=== PATIENT | male | born 1960 | race Caucasian/White ===

== ENCOUNTER 2016-11-23 08:08 | Day surgery (SDC) | payer OTHER ==
[2016-11-23 09:34] LABS: PARTIAL THROMBOPLASTIN TIME 28.2 SEC (23.5-35.8)
[2016-11-23] MEDS ORDERED: LIDOCAINE 1% INJ-PF (10 MG/ML) 30 ML SDV ONE (09:48)
[2016-11-23 13:05] VITALS: BP 125/91
== END 2016-11-23 13:05 | disposition home or self-care (01) ==
LOC: RAD 08:08
PROVIDERS: ATTEND Physician Assistant
PROC: B01BYZZ Fluoroscopy of Spinal Cord using Other Contrast (ICD-10-PCS; principal; 2016-11-23)
DX: M54.16 Radiculopathy, lumbar region (principal); I10 Essential (primary) hypertension; Z86.711 Personal history of pulmonary embolism
CPT/HCPCS: 36415; 85610; 85730; 72265; 72132; J3490

== ENCOUNTER → 2017-05-19 | Outpatient (CLI) | payer OTHER ==
--- NOTE | 2017-05-19 10:36 | RADIOLOGY REPORT (SQ) ---
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 Coronal T2/ HASTE imaging. LIMITATIONS: None. FINDINGS: VISUALIZED UPPER ABDOMEN: Larger right renal cysts. SEGMENTATION: No transitional anatomy. The lowest well-developed disc space is labeled L5-S1. ALIGNMENT: Mild retrolisthesis L 2 on L3. VERTEBRAE: Intact. BONE MARROW: Mild reactive endplate changes L2-3. DISC SIGNAL: Normal. No significant abnormal signal or loss of height. POSTERIOR ELEMENTS: Right laminectomy L5-S1. HARDWARE: Disc prostheses L3-4, L4-5, L5-S1. Associated pedicle screws. CORD AND CONUS: Normal in size and signal intensity. Conus at the appropriate level. SOFT TISSUES: No aortic aneurysm seen. No bulky retroperitoneal adenopathy or mass. No paraspinal mas s or fluid. L1-L2: No significant spinal stenosis or exit foraminal stenosis. L2-L3: Generalized disc bulge. Ligamentous hypertrophy. Mild central canal stenosis. L3-L4: There is left paracentral focal protrusion at the level of the foramina of the tribe disc L3- 4. Compression of the exiting L3 root. L4-L5: No significant spinal stenosis or exit foraminal stenosis. L5-S1: No significant spinal stenosis or exit foraminal stenosis. LOWER THORACIC: Incompletely imaged. No stenosis seen. SACRUM: Visualized upper sacrum intact. OTHER: No other significant findings. IMPRESSION: Mild central canal stenosis L2-3. At L3-4 there appears to be a small left paracentral focal protrusion at the level of foramina result ing compression of the exiting L3 root. TECHNICAL DOCUMENTATION: JOB ID: [id number]- All Rights Reserved
== END ==
LOC: RAD 06:48
PROVIDERS: ATTEND Orthopaedic Surgery
DX: M51.26 Other intervertebral disc displacement, lumbar region (principal)
CPT/HCPCS: 72148

== ENCOUNTER 2017-12-08 19:32 | Emergency (ER) | payer OTHER ==
--- NOTE | 2017-12-08 20:35 | ER Document Report ---
ED Medical Screen (RME) - General Chief Complaint: Chest Tightness Stated Complaint: DIFFICULTY BREATHING/TIGHT CHEST Time Seen by Provider: 12/08/17 20:33 Notes: Patient recently had influenza. Starting yesterday he began to have shortness of breath and was unable to lie flat or fall asleep due to shortness of breath. He is also had chest tightness and been feeling very anxious. He states he had a similar feeling to this several years ago when he had 3 pulmonary embolisms. He states he did take one year of blood thinners and is currently on aspirin. TRAVEL OUTSIDE OF THE [place] IN LAST 30 DAYS: No - Related Data Allergies/Adverse Reactions: No Known Allergies Allergy (Unverified 11/23/16 08:46) Past Medical History - Past Medical History Cardiac Medical History: Reports: Hx Coronary Artery Disease - high cholesterol , Hx Hypertension Denies: Hx Heart Attack Pulmonary Medical History: Denies: Hx Asthma, Hx Bronchitis, Hx COPD, Hx Pneumonia Neurological Medical History: Denies: Hx Cerebrovascular Accident, Hx Seizures Renal/ Medical History: Denies: Hx Peritoneal Dialysis Musculoskeltal Medical History: Denies Hx Arthritis Past Surgical History: Reports: Hx Orthopedic Surgery - Spinal cord stimulator - Immunizations Hx Diphtheria, Pertussis, Tetanus Vaccination: Yes Physical Exam - Vital signs Vitals: Temp Pulse Resp BP Pulse Ox 98.5 F 69 12 125/69 95 12/08/17 19:48 12/08/17 19:48 12/08/17 19:48 12/08/17 19:48 12/08/17 19:48 Course - Vital Signs Vital signs: Temp Pulse Resp BP Pulse Ox 98.5 F 69 12 125/69 95 12/08/17 19:48 12/08/17 19:48 12/08/17 19:48 12/08/17 19:48 12/08/17 19:48
[2017-12-08 21:04] LABS: ABSOLUTE EOSINOPHILS # (AUTO) 0.2 10^3/uL (0.0-0.6); ABSOLUTE LYMPHOCYTES (AUTO) 1.9 10^3/uL (0.5-4.7); ABSOLUTE MONOCYTES (AUTO) 0.5 10^3/uL (0.1-1.4); ABSOLUTE NEUT (AUTO) 4.5 10^3/uL (1.7-8.2); BASOPHILS % (AUTO) 0.5 % (0-2); EOSINOPHILS % (AUTO) 2.7 % (0-6); HEMATOCRIT 37.9 % (37.9-51.0); HEMOGLOBIN 13.1 g/dL (13.5-17.0); LYMPHOCYTES % (AUTO) 27.1 % (13-45); MEAN CORPUSCULAR HEMOGLOBIN 29.6 pg (27.0-33.4); MEAN CORPUSCULAR HGB CONC 34.7 g/dL (32.0-36.0); MEAN CORPUSCULAR VOLUME 86 fl (80-97); MONOCYTES % (AUTO) 6.5 % (3-13); PLATELET COUNT 313 10^3/uL (150-450); RED BLOOD COUNT 4.43 10^6/uL (4.35-5.55); RED CELL DISTRIBUTION WIDTH 13.5 % (11.5-14.0); SEGMENTED NEUTROPHILS % (AUTO) 63.2 % (42-78); TOTAL CELLS COUNTED % (AUTO) 100 %; WHITE BLOOD COUNT 7.1 10^3/uL (4.0-10.5)
[2017-12-08 21:18] LABS: ALANINE AMINOTRANSFERASE 49 U/L (21-72); ALBUMIN 4.8 g/dL (3.5-5.0); ALKALINE PHOSPHATASE 67 U/L (38-126); ANION GAP 14 (5-19); ASPARTATE AMINO TRANSFERASE 33 U/L (17-59); BILIRUBIN,DIRECT 0.2 mg/dL (0.0-0.4); BILIRUBIN,TOTAL 0.3 mg/dL (0.2-1.3); BLOOD UREA NITROGEN 19 mg/dL (7-20); CALCIUM 10.6 mg/dL (8.4-10.2); CARBON DIOXIDE 28 mmol/L (22-30); CHLORIDE 100 mmol/L (98-107); GLUCOSE 109 mg/dL (75-110); POTASSIUM 4.2 mmol/L (3.6-5.0); SODIUM 142.3 mmol/L (137-145); TOTAL PROTEIN 7.2 g/dL (6.3-8.2)
--- NOTE | 2017-12-08 21:25 | ER Document Report ---
ED Respiratory Problem - General Chief Complaint: Chest Tightness Stated Complaint: DIFFICULTY BREATHING/TIGHT CHEST Time Seen by Provider: 12/08/17 20:33 Mode of Arrival: Ambulatory Information source: Patient TRAVEL OUTSIDE OF THE [place] IN LAST 30 DAYS: No - HPI Onset: Yesterday - EVENING Duration: Intermittent episodes Initiating Event: URI - FLU LAST WEEK. No: Exposure to chemicals, Exposure to dust, Exposure to fumes, Exposure to mold, Exposure to smoke, Out of meds, Sports/exercise Quality of pain: No pain Context: Recent immobilization - DECREASED ACTIVITY DURING FLU-LIKE ILLNESS.. denies: Recent cardiac event, Recent foreign travel, Recent long distance trvl Short of Breath: Moderate Sputum amount: None Associated symptoms: Headache, Leg/calf/joint pain - CHRONIC LEG PAIN, Short of breath. denies: Ankle/leg swelling, Chest pain/discomfort, Chills, Congestion, Cough, Fever, Wheezing Worsened by: ACTIVITY Similar symptoms previously: Yes - W/ P.E., 5 YRS AGO Recently seen / treated by doctor: Yes - PCP, LAST WEEK - Related Data Allergies/Adverse Reactions: No Known Allergies Allergy (Unverified 11/23/16 08:46) Past Medical History - General Information source: Patient - Social History Smoking Status: Never Smoker Cigarette use (# per day): No Chew tobacco use (# tins/day): No Frequency of alcohol use: Rare Drug Abuse: None Lives with: Spouse/Significant other Family History: Other - NEG. DVT/PE Patient has suicidal ideation: No Patient has homicidal ideation: No - Past Medical History Cardiac Medical History: Reports: Hx Hypercholesterolemia, Hx Hypertension, Hx Pulmonary Embolism Denies: Hx Heart Attack Pulmonary Medical History: Denies: Hx Asthma, Hx Bronchitis, Hx COPD, Hx Pneumonia Neurological Medical History: Denies: Hx Cerebrovascular Accident, Hx Seizures Endocrine Medical History: Reports: None Renal/ Medical History: Reports: None. Denies: Hx Peritoneal Dialysis Malignancy Medical History: Reports None GI Medical History: Reports: Hx Gastroesophageal Reflux Disease Musculoskeltal Medical History: Denies Hx Arthritis, Reports Other - CHRONIC LEG PAIN, SPINAL STENOSIS Psychiatric Medical History: Reports: None Past Surgical History: Reports: Hx Orthopedic Surgery - Spinal cord stimulator - Immunizations Hx Diphtheria, Pertussis, Tetanus Vaccination: Yes Review of Systems - Review of Systems Constitutional: Weakness EENT: No symptoms reported Cardiovascular: No symptoms reported Respiratory: See HPI Gastrointestinal: No symptoms reported Genitourinary: No symptoms reported Musculoskeletal: See HPI Skin: No symptoms reported Neurological/Psychological: No symptoms reported Physical Exam - Vital signs Vitals: Temp Pulse Resp BP Pulse Ox 98.5 F 69 12 125/69 95 12/08/17 19:48 12/08/17 19:48 12/08/17 19:48 12/08/17 19:48 12/08/17 19:48 Interpretation: Normal. No: Hypotensive, Tachycardic, Hypoxic, Tachypneic - General General appearance: Appears well, Alert In distress: None - HEENT Head: Normocephalic Eyes: Normal Conjunctiva: Normal Ears: Normal Nasal: Normal Mouth/Lips: Normal Mucous membranes: Normal Pharynx: Normal Neck: Normal - Respiratory Respiratory status: No respiratory distress Breath sounds: Normal - Cardiovascular Rhythm: Regular Heart sounds: Normal auscultation Murmur: No - Abdominal Inspection: Normal Distension: No distension - Extremities General upper extremity: Normal inspection General lower extremity: Normal inspection - Neurological Neuro grossly intact: Yes Cognition: Normal Orientation: AAOx4 - Psychological Associated symptoms: Normal affect, Normal mood - Skin Skin Temperature: Warm Skin Moisture: Dry Skin Color: Normal Skin Turgor: Elastic Course - Vital Signs Vital signs: Temp Pulse Resp BP Pulse Ox 98.5 F 69 12 125/69 95 12/08/17 19:48 12/08/17 19:48 12/08/17 19:48 12/08/17 19:48 12/08/17 19:48 - Laboratory Result Diagrams: 12/08/17 20:45 12/08/17 20:45 Laboratory results interpreted by me: 12/08/17 12/08/17 20:45 20:45 Hgb 13.1 L Calcium 10.6 H Discharge - Discharge Clinical Impression: Anxiety Dyspnea, unspecified Qualifiers: Dyspnea type: unspecified Qualified Code(s): R06.00 - Dyspnea, unspecified Condition: Stable Disposition: HOME, SELF-CARE Instructions: Benzodiazepines ([facility]), Corticosteroid Medication ([facility]), Dyspnea, Nonspecific ([facility]) Additional Instructions: TAKE PREDNISONE DIRECTED, BEGINNING TOMORROW (WEDNESDAY). YOU MAY TAKE DIAZEPAM IF NEEDED FOR ANXIETY SYMPTOMS. FOLLOW UP WITH DR. SHAW NEEDED, OR RETURN TO E.R. IF YOU GET WORSE, ANY TIME. Prescriptions: Diazepam 5 mg PO QIDP PRN #14 solution PRN Reason: Anxiety Prednisone [Deltasone 10 mg Tablet] 10 mg PO ASDIR PRN #21 tablet PRN Reason: Referrals: SATISH SHAW MD [Primary Care Provider] - Follow up as needed
[2017-12-08 21:30] LABS: NT PRO BNP 26 pg/mL (5-900)
[2017-12-08 21:31] LABS: TROPONIN I < 0.012 ng/mL
--- NOTE | 2017-12-08 22:15 | RADIOLOGY REPORT (SQ) ---
EXAM DESCRIPTION: CTA CHEST COMPLETED DATE/TIME: 12/08/2017 9:47 pm REASON FOR STUDY: sob/cp/hx pe's COMPARISON: None. TECHNIQUE: CT scan of the chest performed using helical scanning technique with dynamic intravenous contrast injection. Images reviewed with lung, soft tissue and bone windows. Reconstructed coronal and sagittal MPR images reviewed. Additional 3 dimensional post-processing performed to develop Maximal Intensity Projection images (OR P). All images stored on PACS. All CT scanners at this facility use dose modulation, iterative reconstruction, and/or weight based d osing when appropriate to reduce radiation dose to as low as reasonably achievable (ALARA). [facility]: Dose Right [facility]: CareDose [facility]: Dose Right [facility]: Teradose 4D [facility]: HylioSoft CONTRAST TYPE AND DOSE: contrast/concentration: Isovue 370.00 mg/ml; Total Contrast Delivered: 100.0 ml; Total Saline Delivered: 49.0 ml Contrast bolus optimized for the pulmonary arteries. Not diagnostic for the aorta. RENAL FUNCTION: Creatinine 1.16 RADIATION DOSE: CT Rad equipment meets quality standard of care and radiation dose reduction techniq ues were employed. CTDIvol: 31.6 mGy. DLP: 1025 mGy-cm. . LIMITATIONS: None. FINDINGS: LUNGS AND PLEURA: No masses, infiltrates, pneumothorax. Small intrapulmonary lymph nodes in the left major fissure. No pleural effusions, calcifications. AORTA AND GREAT VESSELS: No aneurysm. Contrast bolus not optimized for the aorta. HEART: No pericardial effusion. No significant coronary artery calcifications. PULMONARY ARTERIES: No emboli visualized in the main pulmonary arteries or the segmental branches. HILAR AND MEDIASTINAL STRUCTURES: No identified masses or abnormal nodes. HARDWARE: None in the chest. UPPER ABDOMEN: No significant findings. Limited exam. THYROID AND OTHER SOFT TISSUES: No masses. No adenopathy. BONES: No acute finding. 3D MIPS: Confirm above findings. OTHER: No other significant finding. IMPRESSION: No emboli visualized in the main pulmonary arteries or the segmental branches. No acute findings. COMMENT: Quality ID # [id number]: Final reports with documentation of one or more dose reduction techniques (e.g., Automated exposure control, adjustment of the mA and/or kV according to patient size, use of iterative reconstruction technique) TECHNICAL DOCUMENTATION: JOB ID: [id number] [place]-72 2010 [employer]- All Rights Reserved
[2017-12-08] MEDS ORDERED: PREDNISONE 20 MG TABLET PO ONE (23:17)
[2017-12-08] MEDS ORDERED: DIAZEPAM 5 MG TABLET PO ONE (23:18)
[2017-12-08 23:41] VITALS: BP 127/65
--- NOTE | 2017-12-09 08:55 | EKG REPORT ---
SEVERITY:- ABNORMAL ECG - SINUS RHYTHM NONSPECIFIC IVCD WITH LAD LEFT VENTRICULAR HYPERTROPHY : Confirmed by: Loli Garcia 09-Dec-2017 08:54:39
== END 2017-12-08 23:44 | disposition home or self-care (01) ==
LOC: ER 19:32
DX: F41.9 Anxiety disorder, unspecified (principal); R06.00 Dyspnea, unspecified; R07.9 Chest pain, unspecified; R51 Headache; R53.1 Weakness; E78.00 Pure hypercholesterolemia, unspecified; I10 Essential (primary) hypertension
CPT/HCPCS: 93005; 99285; 36415; 85025; 80053; 84484; 83880; 71275; 93010; J7512